=== PATIENT | female | born 2005 | race Two or more races ===

== ENCOUNTER 2024-01-14 04:10 | Emergency (ER) | payer OTHER ==
[~2024-01-14] VITALS: Ht 154.9 cm; Wt 60.0 kg
[2024-01-14] MEDS: HYDROcodone-ACET 5/325MG TAB PO ONE (04:45)
[2024-01-14 05:16] VITALS: BP 120/66; PULSE 82; RESP 17; TEMP 98.6; O2SAT 99
[2024-01-14] MEDS: KETOROLAC TROMETH 30 MG/ML 1ML VIAL IM ONE (05:52)
== END 2024-01-14 06:20 | disposition home or self-care (01) ==
LOC: EEVIPCON 04:10 → EDBD 04:10 → ER 04:10
DX: S13.4XXA Sprain of ligaments of cervical spine, initial encounter (principal); V89.2XXA Person injured in unspecified motor-vehicle accident, traffic, initial encounter; Y93.89 Activity, other specified; Y92.89 Other specified places as the place of occurrence of the external cause; Y99.8 Other external cause status
CPT/HCPCS: 70450; 72070; 72125; 96372; 99285; J1885